=== PATIENT | female | born 2000 | race Two or more races ===

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

== ENCOUNTER 2020-02-19 16:02 | Emergency (ER) | payer MEDICAID ==
[~2020-02-19] VITALS: Ht 177.8 cm; Wt 91.2 kg
[2020-02-19 16:11] VITALS: BP 146/102
--- NOTE | 2020-02-19 17:06 | NUR ---
Patient given discharge instructions and they have confirmed that they understand the instructions. Patient ambulatory with steady gait.
== END 2020-02-19 17:07 | disposition home or self-care (01) ==
LOC: ED 16:27
DX: M54.2 Cervicalgia (principal); R05 Cough; R50.9 Fever, unspecified
CPT/HCPCS: 99281

== ENCOUNTER 2020-03-19 05:51 | Emergency (ER) | payer MEDICAID ==
[~2020-03-19] VITALS: Ht 175.3 cm; Wt 89.8 kg
[2020-03-19 05:54] VITALS: BP 131/87
== END 2020-03-19 06:22 | disposition home or self-care (01) ==
LOC: ED 06:00
DX: L03.032 Cellulitis of left toe (principal); F17.210 Nicotine dependence, cigarettes, uncomplicated
CPT/HCPCS: 99283